=== PATIENT | female | born 1955 | race Caucasian/White ===

== ENCOUNTER 2019-08-08 15:46 | Outpatient (CLI) | payer MEDICAID ==
[~2019-08-08] VITALS: Ht 160 cm; Wt 81.6 kg
[2019-08-08 17:04] LABS: BASOPHILS # (AUTO) 0.1 X10'3 (0-0.2); BASOPHILS % (AUTO) 0.7 % (0-1); EOSINOPHILS # (AUTO) 0.4 X10'3 (0-0.9); EOSINOPHILS % (AUTO) 4.9 % (0-6); LYMPHOCYTES # (AUTO) 1.7 X10'3 (1.1-4.8); LYMPHOCYTES % (AUTO) 21.1 % (21-51); MEAN CORPUSCULAR HEMOGLOBIN 26.6 PG (27.0-31.0); MEAN CORPUSCULAR HGB CONC 33.3 g/dL (33.0-36.5); MEAN CORPUSCULAR VOLUME 79.9 FL (78-98); MEAN PLATELET VOLUME 6.9 FL (7.4-10.4); MONOCYTES # (AUTO) 0.7 X10'3 (0-0.9); MONOCYTES % (AUTO) 9.1 % (2-12); NEUTROPHILS % (AUTO) 64.2 % (42-75); PRE OP HEMATOCRIT 35.7 % (35.0-45.0); PRE OP HEMOGLOBIN 11.9 g/dL (12.0-16.0); PRE OP PLATELET COUNT 288 X10'3 (140-440); RED BLOOD COUNT 4.47 X10'6 (4.20-5.60); RED CELL DISTRIBUTION WIDTH 14.9 % (11.5-14.5)
[2019-08-08] MEDS ORDERED: LISI10TA4 PO (17:17)
[2019-08-08] MEDS ORDERED: HYDR-3973 PO (17:17)
[2019-08-08] MEDS ORDERED: [UNRECOGNIZED DRUG - CODE] PO (17:17)
[2019-08-08] MEDS ORDERED: CYCL-1 PO (17:17)
[2019-08-08] MEDS ORDERED: VENL150C58 PO (17:17)
[2019-08-08 17:18] LABS: ALBUMIN 3.7 G/DL (3.4-5.0); ALKALINE PHOSPHATASE 123 IU/L (46-116); BLOOD UREA NITROGEN 25 MG/DL (7-18); BUN/CREATININE RATIO 39.1 (6.6-38.0); CALCIUM 9.2 MG/DL (8.5-10.1); CHLORIDE 104 MMOL/L (99-107); CREATININE 0.64 MG/DL (0.40-0.90); PRE OP ALT 35 U/L (30-65); PRE OP ANION GAP 8 (8-16); PRE OP AST 30 U/L (10-37); PRE OP BILIRUB, TOTAL 0.2 MG/DL (0.0-1.0); PRE OP GLUCOSE 141 MG/DL (70-104); PRE OP POTASSIUM 3.7 MMOL/L (3.4-5.1); PRE OP SODIUM 140 MMOL/L (135-145); TOTAL CARBON DIOXIDE 28.1 MMOL/L (24-32); TOTAL PROTEIN 7.5 G/DL (6.4-8.2); eGFR > 90 ML/MIN
[2019-08-08] MEDS ORDERED: OMEP20TA23 PO (17:18)
[2019-08-08] MEDS ORDERED: TERB125S PO (17:18)
[2019-08-08] MEDS ORDERED: ROSU40TA22 PO (17:18)
[2019-08-08] MEDS ORDERED: LACT1CAP65 PO (17:18)
[2019-08-08] MEDS ORDERED: IBUP-1984 PO (17:18)
[2019-08-08] MEDS ORDERED: ARIP2TAB20 PO (17:18)
[2019-08-08] MEDS ORDERED: BIOT1CAP3 PO (17:18)
[2019-08-08] MEDS ORDERED: ASPI-1265 PO (17:18)
[2019-08-08] MEDS ORDERED: MULT-1085 PO (17:18)
[2019-08-16] MEDS ORDERED: ringers solution, lacted 1,000 ML IV SCH (05:00)
[2019-08-16] MEDS ORDERED: famotidine 20mg tablet PO ONE (05:30)
[2019-08-16] MEDS ORDERED: DOCUMENT DATE & TIME OF BETA-BLOCKER PO ONE (05:30)
[2019-08-16] MEDS ORDERED: tranexamic acid inj. 810 MG in normal saline 100ml IV soln 100 ML IV ONE ×4 (05:30)
[2019-08-16] MEDS ORDERED: vancomycin inj 1,500 MG in normal saline 300ml IV soln IV ONE (05:30)
[2019-08-16] MEDS ORDERED: cefazolin/dext.iso 2gm/50ml 50 ML IV ONE (05:30)
== END 2019-08-08 23:59 | disposition home or self-care (01) ==
LOC: PRE-OP 15:46 → EDSTATUS 08-16 07:30
PROVIDERS: ATTEND Orthopaedic Surgery
DX: Z01.818 Encounter for other preprocedural examination (principal); M75.121 Complete rotator cuff tear or rupture of right shoulder, not specified as traumatic; M87.111 Osteonecrosis due to drugs, right shoulder; M19.011 Primary osteoarthritis, right shoulder; M25.511 Pain in right shoulder
CPT/HCPCS: 36415; 80053; 85025; 87081

== ENCOUNTER 2019-12-24 07:04 | Inpatient (IN) | payer MEDICAID ==
[2019-12-13 14:52] LABS: BASOPHILS # (AUTO) 0.1 X10'3 (0-0.2); BASOPHILS % (AUTO) 0.7 % (0-1); EOSINOPHILS # (AUTO) 0.5 X10'3 (0-0.9); LYMPHOCYTES # (AUTO) 1.7 X10'3 (1.1-4.8); LYMPHOCYTES % (AUTO) 26.1 % (21-51); MEAN CORPUSCULAR HGB CONC 33.3 g/dL (33.0-36.5); MEAN CORPUSCULAR VOLUME 80.9 FL (78-98); MEAN PLATELET VOLUME 7.2 FL (7.4-10.4); MONOCYTES # (AUTO) 0.4 X10'3 (0-0.9); MONOCYTES % (AUTO) 6.6 % (2-12); NEUTROPHILS # (AUTO) 3.9 X10'3 (1.8-7.7); NEUTROPHILS % (AUTO) 58.6 % (42-75); PRE OP PLATELET COUNT 228 X10'3 (140-440); RED BLOOD COUNT 4.45 X10'6 (4.20-5.60); RED CELL DISTRIBUTION WIDTH 15.2 % (11.5-14.5)
[2019-12-13 15:05] LABS: PRE OP PROTIME 10.2 SECONDS (9.0-12.0)
[2019-12-13 15:08] LABS: ALBUMIN 3.7 G/DL (3.4-5.0); ALKALINE PHOSPHATASE 97 IU/L (46-116); BLOOD UREA NITROGEN 20 MG/DL (7-18); BUN/CREATININE RATIO 27.8 (6.6-38.0); CALCIUM 9.5 MG/DL (8.5-10.1); CHLORIDE 107 MMOL/L (99-107); CREATININE 0.72 MG/DL (0.40-0.90); PRE OP ALT 23 U/L (30-65); PRE OP ANION GAP 12 (8-16); PRE OP AST 23 U/L (10-37); PRE OP BILIRUB, TOTAL 0.2 MG/DL (0.0-1.0); PRE OP GLUCOSE 171 MG/DL (70-104); PRE OP POTASSIUM 3.7 MMOL/L (3.4-5.1); PRE OP SODIUM 144 MMOL/L (135-145); TOTAL CARBON DIOXIDE 25.4 MMOL/L (24-32); TOTAL PROTEIN 7.3 G/DL (6.4-8.2); eGFR 82 ML/MIN
[~2019-12-24] VITALS: Ht 157.5 cm; Wt 80.7 kg
[2019-12-24] VITALS (21 sets, daily range): BP systolic 109–174; BP diastolic 39–89
[~2019-12-24 07:04] MED LIST: ARIP2TAB20 PO; ASPI-1265 PO; BIOT1CAP3 PO; CYCL-1 PO; DOCU-148 PO; DOCUMENT DATE & TIME OF BETA-BLOCKER PO ONE; HYDR-3973 PO; IBUP-1984 PO; LACT1CAP65 PO; LISI10TA4 PO; MIRT15TA8 PO; MULT-1085 PO; NORMAL SALINE IV ONE; OMEP20TA23 PO; ROSU40TA22 PO; TRANEXAMIC ACID IV ONE; [UNRECOGNIZED DRUG - CODE] PO; cefazolin/dext.iso 2gm/50ml 50 ML IV ONE; famotidine 20mg tablet PO ONE; ringers solution, lacted 1,000 ML IV SCH; vancomycin 1,500 MG in NS 300ml IV soln IV ONE
[2019-12-24] MEDS ORDERED: ringers solution, lacted 1,000 ML IV SCH (08:24)
[2019-12-24] MEDS ORDERED: proCHLORperazine 10 MG/2 ml inj IV PRN (08:25)
[2019-12-24] MEDS ORDERED: morphine 2 MG/ML inj. syringe IV PRN (08:25)
[2019-12-24] MEDS ORDERED: meperidine/PF 25mg/ml syringe IV PRN ×3 (08:25)
[2019-12-24] MEDS ORDERED: morphine 4 MG/ML inj SYRINge IV PRN (08:25)
[2019-12-24] MEDS ORDERED: ondansetron/PF 4mg/2ml inj IV PRN ×2 (08:25→14:45)
[2019-12-24] MEDS ORDERED: ketorolac trometh. 30mg/ml inj. ONE (10:29)
[2019-12-24] MEDS ORDERED: ROPIVAcaine 0.5% (5mg/ml) 30ml vial ONE ×2 (10:29→11:21)
[2019-12-24] MEDS ORDERED: fentaNYL/PF 50MCG/1 ML 2ML syringe ONE (11:00)
[2019-12-24] MEDS ORDERED: propofol inj 20 ML IV ONE (11:01)
[2019-12-24] MEDS ORDERED: MIDAZolam 5mg/5ml vial ONE (11:01)
[2019-12-24] MEDS ORDERED: LIDOcaine 1%/PF 5ML 10 MG/ML VIAL ONE (11:23)
[2019-12-24] MEDS ORDERED: sevoflurane 250ml liquid IH ONE (11:23)
[2019-12-24] MEDS ORDERED: dexamethasone sod phosphate 4mg/ml inj. ONE (12:02)
[2019-12-24] MEDS ORDERED: ondansetron/PF 4mg/2ml inj ONE (12:02)
[2019-12-24] MEDS ORDERED: ROPIVAcaine 0.2% (10 MG/5 ML) BOLUS INJECTION INTERSCALE PRN (14:00)
--- NOTE | 2019-12-24 14:43 | NUR ---
Received from OR via BED, accompanied by Anesthesiologist DR SIMMONS and report given by Anesthesiologist. PT DROWSY, DENIES PAIN, RIGHT JASEN W/DRSG, SHOULDER WRAP, ICE PACK, SLING CDI. Addendum: 12/24/19 at 1540 by Conchita Kiran RN Amended: Links added.
[2019-12-24] MEDS ORDERED: acetaminophen 325mg tablet PO PRN (14:45)
[2019-12-24] MEDS ORDERED: diphenhydrAMINE 25mg capsule PO PRN ×2 (14:45)
[2019-12-24] MEDS ORDERED: HYDROmorphone 1 mg/ml syringe IV PRN (14:45)
[2019-12-24] MEDS ORDERED: HYDROmorphone inj. 0.5 MG/0.5 ML DISP.SYRIN IV PRN (14:45)
[2019-12-24] MEDS ORDERED: oxyCODONE IR 5mg (immed. release) tablet PO PRN (14:45)
[2019-12-24] MEDS ORDERED: bisacodyl 10mg suppository rectal RC PRN (14:54)
[2019-12-24] MEDS: ROPIVAcaine 0.2%/PF PUMP/bolus 550 ML INTERSCALE SCH (16:02)
--- NOTE | 2019-12-24 16:33 | NUR ---
Report called to receiving nurse. Transferred via BED, 3 BAGS OF Belongings SENT W/PT TO ROOM [facility], [facility], CALL LIGHT GIVEN, SIDE RAILS UP X 2, NURSES AIDE AT BEDSIDE TO RECEIVE PT. Special Issues communicated to receiving nurse. YES. Addendum: 12/24/19 at 1650 by Conchita Kiran RN Amended: Links added.
[2019-12-24] MEDS: potassium cl 20mEq in 1/2 NS 1,000 ML IV SCH ×2 (16:57→22:43)
--- NOTE | 2019-12-24 18:26 | NUR ---
Problems reprioritized. Patient report given, questions answered & plan of care reviewed with Xin.
[2019-12-24] MEDS: ceFAZolin 1GM/D5W- ADD-VANTAGE 50 ML IV SCH ×2 (19:45→23:43)
[2019-12-24] MEDS ORDERED: vancomycin/NS 1 GM ADD-VANTAGE 250 ML IV SCH (20:00)
[2019-12-24] MEDS: docusate sod 100mg capsule PO SCH (20:47)
[2019-12-24] MEDS: cyclobenzaprine 10mg tablet PO SCH (20:47)
[2019-12-24] MEDS: sennosides 8.6mg tablet PO SCH (20:47)
[2019-12-24] MEDS: atorvastatin 20mg tablet PO SCH (20:48)
[2019-12-24] MEDS: mirtazapine 15mg tablet PO SCH (20:48)
[2019-12-24] MEDS: atenolol 50mg tablet PO SCH (20:49)
[2019-12-24] MEDS: ibuprofen 200mg tablet PO SCH (20:49)
[2019-12-24] MEDS: acetaminophen 325mg tablet PO SCH (20:52)
[2019-12-24] MEDS: oxyCODONE IR 5mg (immed. release) tablet PO PRN (20:53)
[2019-12-25 02:00] VITALS: BP 119/82
[2019-12-25] MEDS: acetaminophen 325mg tablet PO SCH ×4 (02:00→19:16)
[2019-12-25] MEDS: HYDROcodone/acetaminophen 10/325mg tab PO PRN ×3 (04:05→21:26)
[2019-12-25] MEDS: potassium cl 20mEq in 1/2 NS 1,000 ML IV SCH ×2 (04:15→12:52)
[2019-12-25 06:00] VITALS: BP 131/40
[2019-12-25] MEDS: oxyCODONE IR 5mg (immed. release) tablet PO PRN ×2 (06:00→12:14)
--- NOTE | 2019-12-25 06:10 | NUR ---
RECEIVED REPORT FROM NOHEMI KUMARI, ASSUMED CARE AT THIS TIME.
[2019-12-25 07:39] LABS: BASOPHILS # (AUTO) 0.1 X10'3 (0-0.2); BASOPHILS % (AUTO) 0.4 % (0-1); EOSINOPHILS % (AUTO) 0.3 % (0-6); HEMATOCRIT 26.4 % (35.0-45.0); HEMOGLOBIN 8.8 g/dl (12.0-16.0); LYMPHOCYTES # (AUTO) 2.4 X10'3 (1.1-4.8); LYMPHOCYTES % (AUTO) 17.1 % (21-51); MEAN CORPUSCULAR HEMOGLOBIN 27.2 PG (27.0-31.0); MEAN CORPUSCULAR HGB CONC 33.4 g/dL (33.0-36.5); MEAN CORPUSCULAR VOLUME 81.5 FL (78-98); MEAN PLATELET VOLUME 7.9 FL (7.4-10.4); MONOCYTES # (AUTO) 1.7 X10'3 (0-0.9); MONOCYTES % (AUTO) 11.9 % (2-12); NEUTROPHILS # (AUTO) 9.8 X10'3 (1.8-7.7); NEUTROPHILS % (AUTO) 70.3 % (42-75); PLATELET COUNT 282 X10'3 (140-440); RED BLOOD COUNT 3.24 X10'6 (4.20-5.60); RED CELL DISTRIBUTION WIDTH 15.1 % (11.5-14.5); WHITE BLOOD COUNT 13.9 X10'3 (4.5-11.0)
[2019-12-25] MEDS: ibuprofen 200mg tablet PO SCH ×2 (08:23→19:16)
[2019-12-25] MEDS: docusate sod 100mg capsule PO SCH ×2 (08:23→19:17)
[2019-12-25] MEDS: cyclobenzaprine 10mg tablet PO SCH ×2 (08:23→19:17)
[2019-12-25] MEDS: aspirin 325mg tablet PO SCH (08:24)
[2019-12-25] MEDS: lisinopril 10 MG tablet PO SCH (08:24)
[2019-12-25] MEDS: pantoprazole 40mg Tablet.DR PO SCH (08:24)
[2019-12-25 08:26] LABS: ANION GAP 9 (8-16); CHLORIDE 107 MMOL/L (99-107); POTASSIUM 4.2 MMOL/L (3.5-5.1); SODIUM 140 MMOL/L (135-145); TOTAL CARBON DIOXIDE 23.7 MMOL/L (24-32)
[2019-12-25] MEDS: magnesium hydroxide 30ml (MOM) UD suspension PO PRN (08:42)
[2019-12-25 10:00] VITALS: BP 145/79
[2019-12-25 14:00] VITALS: BP 149/89
--- NOTE | 2019-12-25 14:47 | NUR ---
Joint consult: Pt s/p reverse right TSA with A1c 7.0% seen at bedside for written and verbal protein and DM educations. Pt states she limits her sugar intake and will usually drink a Glucerna for breakfast however denies ONS during admission. Pt endorses a good appetite and requests chopped food d/t right arm being in sling. Pt denies food allergies and reports some difficulty chewing d/t missing teeth. Pt requests hot tea instead of coffee with breakfast and reports dislike to okra. No documented LBM however pt does c/o some constipation. Pt currently receiving routine bowel care however agrees to prunes with dinner tonight. All food preferences were d/w dietary. Pt provided with ONS coupons and RD contact information. Will remain available. Addendum: 12/25/19 at [address] Amended: Links added.
--- NOTE | 2019-12-25 17:10 | NUR ---
Patient received M.O.M this am, unsuccessful so far. Gave patient a GI cocktail of prune juice, apple juice and butter warmed and mixed together. Will cont. to monitor. Patient states she believes she's getting close to having a BM since she's been passing more gas.
[2019-12-25 18:00] VITALS: BP 127/55
--- NOTE | 2019-12-25 18:13 | NUR ---
Gave report and transferred care over to Aries KUMARI at this time.
--- NOTE | 2019-12-25 18:35 | NUR ---
Patient in room [facility]TH[facility] 4023. I have received report from Celena KUMARI and had the opportunity to ask questions and assume patient care.
[2019-12-25] MEDS: ROPIVAcaine 0.2%/PF PUMP/bolus 550 ML INTERSCALE SCH (19:26)
[2019-12-25] MEDS: atorvastatin 20mg tablet PO SCH (21:20)
[2019-12-25] MEDS: mirtazapine 15mg tablet PO SCH (21:21)
[2019-12-25] MEDS: atenolol 50mg tablet PO SCH (21:24)
[2019-12-25] MEDS: sennosides 8.6mg tablet PO SCH (21:25)
[2019-12-25 22:00] VITALS: BP 140/50
[2019-12-26] MEDS: acetaminophen 325mg tablet PO SCH (02:00)
[2019-12-26] MEDS: HYDROcodone/acetaminophen 10/325mg tab PO PRN ×3 (02:11→11:07)
--- NOTE | 2019-12-26 02:23 | NUR ---
Pt is taking norco 10/325mg and can not take any more tylenol, did not give 0200 tylenol.
[2019-12-26] MEDS: magnesium hydroxide 30ml (MOM) UD suspension PO PRN (04:12)
[2019-12-26 06:00] VITALS: BP 156/78
--- NOTE | 2019-12-26 06:05 | NUR ---
Problems reprioritized. Patient report given, questions answered & plan of care reviewed with Marisol KUMARI.
--- NOTE | 2019-12-26 06:25 | NUR ---
Patient in room [facility]TH[facility] 4023. I have received report from Aries KUMARI and had the opportunity to ask questions and assume patient care.
[2019-12-26 06:38] LABS: BASOPHILS % (AUTO) 0.5 % (0-1); EOSINOPHILS # (AUTO) 0.7 X10'3 (0-0.9); EOSINOPHILS % (AUTO) 8.8 % (0-6); HEMATOCRIT 22.1 % (35.0-45.0); HEMOGLOBIN 7.5 g/dl (12.0-16.0); LYMPHOCYTES # (AUTO) 2.5 X10'3 (1.1-4.8); LYMPHOCYTES % (AUTO) 33.3 % (21-51); MEAN CORPUSCULAR HEMOGLOBIN 27.6 PG (27.0-31.0); MEAN CORPUSCULAR HGB CONC 33.8 g/dL (33.0-36.5); MEAN CORPUSCULAR VOLUME 81.7 FL (78-98); MEAN PLATELET VOLUME 7.6 FL (7.4-10.4); MONOCYTES # (AUTO) 0.7 X10'3 (0-0.9); MONOCYTES % (AUTO) 9.9 % (2-12); NEUTROPHILS # (AUTO) 3.6 X10'3 (1.8-7.7); NEUTROPHILS % (AUTO) 47.5 % (42-75); PLATELET COUNT 174 X10'3 (140-440); RED BLOOD COUNT 2.71 X10'6 (4.20-5.60); RED CELL DISTRIBUTION WIDTH 15.5 % (11.5-14.5); WHITE BLOOD COUNT 7.5 X10'3 (4.5-11.0)
[2019-12-26] MEDS: cyclobenzaprine 10mg tablet PO SCH (07:27)
[2019-12-26] MEDS: docusate sod 100mg capsule PO SCH (07:27)
[2019-12-26] MEDS: aspirin 325mg tablet PO SCH (07:28)
[2019-12-26] MEDS: ibuprofen 200mg tablet PO SCH (07:28)
[2019-12-26] MEDS: pantoprazole 40mg Tablet.DR PO SCH (07:28)
[2019-12-26] MEDS: lisinopril 10 MG tablet PO SCH (07:28)
[2019-12-26 10:00] VITALS: BP 118/73
[2019-12-26] MEDS: ROPIVAcaine 0.2%/PF PUMP/bolus 550 ML INTERSCALE SCH (13:00)
[2019-12-26] MEDS ORDERED: acetaminophen 325mg tablet PO PRN (14:45)
== END 2019-12-26 13:20 | DRG 315 ==
LOC: PAS IN 07:04 → UNDOADMIN 07:04 → EDSTATUS 09:45 → PAS IN 14:43 → ORTHO 4S 16:30
PROVIDERS: ADMIT Orthopaedic Surgery; ATTEND Orthopaedic Surgery
PROC: 0RRJ00Z Replacement of Right Shoulder Joint with Reverse Ball and Socket Synthetic Substitute, Open Approach (ICD-10-PCS; 2019-12-24)
PROC: 3E0T3BZ Introduction of Anesthetic Agent into Peripheral Nerves and Plexi, Percutaneous Approach (ICD-10-PCS; principal; 2019-12-24 11:23)
DX: M19.011 Primary osteoarthritis, right shoulder (principal); M75.121 Complete rotator cuff tear or rupture of right shoulder, not specified as traumatic; M87.111 Osteonecrosis due to drugs, right shoulder; D62 Acute posthemorrhagic anemia; G47.30 Sleep apnea, unspecified; Z60.2 Problems related to living alone; E11.9 Type 2 diabetes mellitus without complications; E78.5 Hyperlipidemia, unspecified; I10 Essential (primary) hypertension; F32.9 Major depressive disorder, single episode, unspecified; K21.9 Gastro-esophageal reflux disease without esophagitis; Z79.899 Other long term (current) drug therapy; Z79.82 Long term (current) use of aspirin
CPT/HCPCS: 36415; 80051; 80053; 82948; 83036; 85025; 85610; 85730; 87081; 93005; 97110; 97116; 97161; 97530; A4565; A4618; A7000; C1776; G0378; J0690; J1100; J1170; J1885; J2250; J2405; J2704; J2795; J3010; J3370; J3480; J7040; J7120

== ENCOUNTER 2023-06-05 13:29 | Inpatient (IN) | payer MEDICARE, MEDICAID ==
[2023-06-02 14:56] LABS: BASOPHILS % (AUTO) 0.5 % (0-1); EOSINOPHILS # (AUTO) 0.5 X10'3 (0-0.9); EOSINOPHILS % (AUTO) 6.3 % (0-6); HEMATOCRIT 39.2 % (35.0-45.0); LYMPHOCYTES # (AUTO) 2.3 X10'3 (1.1-4.8); LYMPHOCYTES % (AUTO) 30.1 % (21-51); MEAN CORPUSCULAR HEMOGLOBIN 28.1 PG (27.0-31.0); MEAN CORPUSCULAR HGB CONC 33.3 g/dL (33.0-36.5); MEAN CORPUSCULAR VOLUME 84.5 FL (78-98); MEAN PLATELET VOLUME 7.4 FL (7.4-10.4); MONOCYTES # (AUTO) 0.6 X10'3 (0-0.9); MONOCYTES % (AUTO) 8.3 % (2-12); NEUTROPHILS # (AUTO) 4.2 X10'3 (1.8-7.7); NEUTROPHILS % (AUTO) 54.8 % (42-75); PLATELET COUNT 233 X10'3 (140-440); RED BLOOD COUNT 4.64 X10'6 (4.20-5.60); RED CELL DISTRIBUTION WIDTH 13.7 % (11.5-14.5); WHITE BLOOD COUNT 7.7 X10'3 (4.5-11.0)
[2023-06-02 15:02] LABS: ANION GAP 8 (8-16); BLOOD UREA NITROGEN 22 MG/DL (7-18); BUN/CREATININE RATIO 36.1 (10.0-20.0); CALCIUM 9.5 MG/DL (8.5-10.1); CHLORIDE 105 MMOL/L (99-107); CREATININE 0.61 MG/DL (0.40-0.90); GLUCOSE 99 MG/DL (70-104); POTASSIUM 3.8 MMOL/L (3.5-5.1); SODIUM 141 MMOL/L (135-145); TOTAL CARBON DIOXIDE 27.7 MMOL/L (24-32); eGFR > 90 ML/MIN
[2023-06-02 15:04] LABS: APTT 26 SECONDS (22-32); PROTHROMBIN TIME 10.7 SECONDS (9.0-12.0)
[~2023-06-05] VITALS: Ht 162.6 cm; Wt 84.6 kg
[2023-06-05] VITALS (9 sets, daily range): BP systolic 80–145; BP diastolic 39–85; PULSE 55–84; RESP 10–18; TEMP 98–98.7; O2SAT 92–98
[~2023-06-05 13:29] MED LIST changes: -DOCUMENT DATE & TIME OF BETA-BLOCKER PO ONE; +LISI10TA27 PO; -LISI10TA4 PO; +MIRT-87 PO; -MIRT15TA8 PO; -NORMAL SALINE IV ONE; -TRANEXAMIC ACID IV ONE; +[UNRECOGNIZED DRUG - CODE] PO; -[UNRECOGNIZED DRUG - CODE] PO; -cefazolin/dext.iso 2gm/50ml 50 ML IV ONE; -famotidine 20mg tablet PO ONE; -ringers solution, lacted 1,000 ML IV SCH; -vancomycin 1,500 MG in NS 300ml IV soln IV ONE
[2023-06-05] MEDS ORDERED: LORazepam 0.5 MG tablet PO PRN (13:45)
[2023-06-05] MEDS ORDERED: diphenhydrAMINE 25mg capsule PO PRN (13:45)
[2023-06-05] MEDS: normal saline 1,000 ML IV SCH ×2 (13:45→23:25)
[2023-06-05] MEDS ORDERED: BREX1TAB PO (14:00)
[2023-06-05] MEDS ORDERED: CLOP75TA34 PO (14:00)
[2023-06-05] MEDS ORDERED: MIRT-88 PO (14:00)
[2023-06-05] MEDS ORDERED: QUET25TA36 PO (14:00)
[2023-06-05] MEDS ORDERED: TIZA-205 PO (14:00)
[2023-06-05] MEDS ORDERED: EZET10TA48 PO (14:00)
[2023-06-05] MEDS ORDERED: ESTR42.510 TOP (14:00)
[2023-06-05] MEDS ORDERED: POLY119P2 PO (14:00)
[2023-06-05] MEDS ORDERED: DESV100T16 PO (14:00)
[2023-06-05] MEDS ORDERED: heparin 1,000unit/ml 10ml vial 10 ML ONE (15:27)
[2023-06-05] MEDS ORDERED: iohexol 350MG/ML 100ml bottle IV ONE (15:27)
[2023-06-05] MEDS ORDERED: LIDOcaine 1% (10mg/ml)w/preservative inj. 20ml MDV ONE (15:27)
[2023-06-05] MEDS ORDERED: phenylephrine 10mg/ml inj. -priapism dosing ONE (15:27)
[2023-06-05] MEDS ORDERED: atropine 0.1mg/ml 10ml syringe ONE (15:27)
[2023-06-05] MEDS ORDERED: DOPamine 400mg/D5W 250ml 0 ML IV ONE (15:29)
[2023-06-05] MEDS ORDERED: FLU VACC QS2023-24(6MOS UP)/PF 60 MCG/0.5 ML SYRINGE IM ONE (15:40)
[2023-06-05] MEDS ORDERED: hydrALAZINE 20mg/ml inj. IV ONE (17:38)
[2023-06-05] MEDS ORDERED: clopidogrel 300mg tablet ONE (17:40)
[2023-06-05] MEDS ORDERED: hydrALAZINE 20mg/ml inj. IV PRN (19:20)
[2023-06-05] MEDS ORDERED: DOPamine 400mg/D5W 250ml 250 ML IV SCH (19:20)
[2023-06-05] MEDS ORDERED: pseudoephedrine 30mg tablet PO PRN (19:20)
[2023-06-05] MEDS ORDERED: HYDROcodone/acetaminophen 5mg/325mg tablet PO PRN (19:20)
[2023-06-05] MEDS ORDERED: HYDROcodone/acetaminophen 10/325mg tab PO PRN (19:25)
[2023-06-05] MEDS ORDERED: tizanidine 4mg tablet PO PRN (19:25)
[2023-06-05] MEDS ORDERED: BIOT1TAB PO (19:28)
[2023-06-05] MEDS ORDERED: docusate sod 100mg capsule PO SCH (20:00)
[2023-06-05] MEDS: ESTRADIOL 0.01% TOP SCH (20:00)
[2023-06-05] MEDS ORDERED: QUEtiapine 25mg tablet PO SCH (21:00)
[2023-06-05] MEDS ORDERED: atenolol 50mg tablet PO SCH ×2 (21:00→22:30)
[2023-06-05] MEDS ORDERED: ROSUVASTATIN CALCIUM 5 MG TABLET PO SCH (21:00)
[2023-06-05] MEDS ORDERED: mirtazapine 15mg tablet PO SCH ×2 (21:00→22:47)
[2023-06-05] MEDS: HYDROcodone/acetaminophen 10/325mg tab PO PRN (21:01)
[2023-06-05] MEDS: docusate sod 100mg capsule PO SCH (22:31)
[2023-06-05] MEDS: ondansetron/PF 4mg/2ml inj IV PRN (22:50)
[2023-06-06 02:00] VITALS: BP 101/38; PULSE 48; RESP 18; TEMP 97.7; O2SAT 94
[2023-06-06 06:00] VITALS: BP 101/38; PULSE 61; RESP 19; TEMP 97.4; O2SAT 97
[2023-06-06] MEDS: HYDROcodone/acetaminophen 10/325mg tab PO PRN (06:50)
[2023-06-06] MEDS: normal saline 1,000 ML IV SCH ×3 (06:52→08:59)
[2023-06-06 08:00] VITALS: RESP 19; O2SAT 97
[2023-06-06] MEDS ORDERED: multivitamins, therapeutics tablet PO SCH (08:00)
[2023-06-06] MEDS ORDERED: polyethylene glycol 3350 17gm powd pack PO SCH (08:00)
[2023-06-06] MEDS ORDERED: aspirin 81mg tab.chew PO SCH (08:00)
[2023-06-06] MEDS ORDERED: pantoprazole 40mg Tablet.DR PO SCH (08:00)
[2023-06-06] MEDS ORDERED: venlafaxine 25mg tablet PO SCH (08:00)
[2023-06-06] MEDS ORDERED: clopidogrel 75mg tablet PO SCH (08:00)
[2023-06-06] MEDS ORDERED: lisinopril 10 MG tablet PO SCH (08:00)
[2023-06-06] MEDS: ESTRADIOL 0.01% TOP SCH (08:00)
[2023-06-06] MEDS ORDERED: ezetimibe 10mg tablet PO SCH (08:00)
[2023-06-06] MEDS: docusate sod 100mg capsule PO SCH (08:53)
[2023-06-06] MEDS: ondansetron/PF 4mg/2ml inj IV PRN (09:58)
[2023-06-06] MEDS ORDERED: PANT-47 PO (10:50)
[2023-06-06 11:00] VITALS: BP 115/52; PULSE 76; RESP 15; TEMP 97.7; O2SAT 98
[2023-06-06] MEDS ORDERED: mirtazapine 15mg tablet PO SCH (21:00)
== END 2023-06-06 12:30 | disposition home or self-care (01) | DRG 36 ==
LOC: SSTAY O 13:29 → PCU 3S 17:45 → ORTHO 4S 17:45 → PCU 3S 18:00 → SSTAY O 06-06 12:38
PROVIDERS: ADMIT Student in an Organized Health Care Education/Training Program; ATTEND Student in an Organized Health Care Education/Training Program
PROC: 037K34Z Dilation of Right Internal Carotid Artery with Drug-eluting Intraluminal Device, Percutaneous Approach (ICD-10-PCS; principal; 2023-06-05)
PROC: B41F1ZZ Fluoroscopy of Right Lower Extremity Arteries using Low Osmolar Contrast (ICD-10-PCS; 2023-06-05)
PROC: B3131ZZ Fluoroscopy of Right Common Carotid Artery using Low Osmolar Contrast (ICD-10-PCS; 2023-06-05)
PROC: B3101ZZ Fluoroscopy of Thoracic Aorta using Low Osmolar Contrast (ICD-10-PCS; 2023-06-05)
PROC: B3161ZZ Fluoroscopy of Right Internal Carotid Artery using Low Osmolar Contrast (ICD-10-PCS; 2023-06-05)
PROC: B3191ZZ Fluoroscopy of Right External Carotid Artery using Low Osmolar Contrast (ICD-10-PCS; 2023-06-05)
DX: I65.21 Occlusion and stenosis of right carotid artery (principal); I73.9 Peripheral vascular disease, unspecified; E78.5 Hyperlipidemia, unspecified; I10 Essential (primary) hypertension; G47.33 Obstructive sleep apnea (adult) (pediatric); Z79.899 Other long term (current) drug therapy
CPT/HCPCS: 36415; 37215; 80048; 85025; 85610; 85730; 87081; 90686; 93005; A6258; C1725; C1760; C1769; C1876; C1884; C1887; C1894; G0378; J0360; J0461; J1265; J1644; J2370; J2405; J3490; J7030; Q9967